=== PATIENT | male | born 1970 | race Caucasian/White ===

== ENCOUNTER 2017-04-23 01:32 | Emergency (ER) | payer SELFPAY ==
[~2017-04-23] VITALS: Ht 175.3 cm; Wt 59.5 kg
[2017-04-23 02:04] LABS: HEMATOCRIT 40.8 % (39.2-51.8); HEMOGLOBIN 13.8 g/dL (13.7-18.0); WHITE BLOOD COUNT 9.7 x10^3/uL (3.4-10)
[2017-04-23 02:54] LABS: ASPARTATE AMINO TRANSFERASE 23 U/L (15-37); BLOOD UREA NITROGEN 15 mg/dL (7-18)
[2017-04-23 04:36] VITALS: BP 113/70
== END 2017-04-23 04:38 | disposition home or self-care (01) ==
LOC: ED 04:03
DX: R10.30 Lower abdominal pain, unspecified (principal); F15.10 Other stimulant abuse, uncomplicated; F17.210 Nicotine dependence, cigarettes, uncomplicated
CPT/HCPCS: 36415; 80053; 81001; 83690; 85025; 99284

== ENCOUNTER 2017-05-07 15:26 | Emergency (ER) | payer MEDICAID ==
[~2017-05-07] VITALS: Ht 175.3 cm; Wt 61.4 kg
[2017-05-07 15:28] VITALS: BP 138/88
[2017-05-07] MEDS ORDERED: HYDROcodone/APAP 5/325 TABLET ONE (15:54)
[2017-05-07] MEDS ORDERED: CEFAZOLIN 1,000 MG ONE (15:55)
[2017-05-07] MEDS ORDERED: CEFAZOLIN 1,000 MG IM ONE (16:00)
[2017-05-07] MEDS ORDERED: HYDROcodone/APAP 5/325 TABLET PO PRN (16:00)
== END 2017-05-07 17:07 | disposition home or self-care (01) ==
LOC: ED 16:50
DX: L03.114 Cellulitis of left upper limb (principal)
CPT/HCPCS: 73130; 96372; 99284; J0690

== ENCOUNTER 2019-07-15 12:24 | Emergency (ER) | payer SELFPAY ==
[~2019-07-15] VITALS: Ht 175.3 cm; Wt 74.2 kg
[2019-07-15] MEDS ORDERED: LIDOCAINE-MPF 1%, 5ML ONE (13:24)
--- NOTE | 2019-07-15 13:29 | NUR ---
PT PRESENTS TO ED WITH C/O ABCESS TO LEFT MOHAN X 6 DAYS. BP AND SPO2 MONITORS IN PLACE. REGINA PÉREZ AT BEDSIDE FOR I&D.
[2019-07-15] MEDS ORDERED: LIDOCAINE-MPF 1%, 5ML INFIL ONE (13:30)
[2019-07-15] MEDS ORDERED: CEFTRIAXONE 1,000 MG IM ONE (13:30)
[2019-07-15] MEDS ORDERED: CEFTRIAXONE 1,000 MG ONE (14:39)
--- NOTE | 2019-07-15 14:40 | NUR ---
REPORT GIVEN TO NUNU MICHAEL.
--- NOTE | 2019-07-15 14:52 | NUR ---
REPORT REC'D ASSUMED PATIENT CARE. PATIENT MEDICATED PER ORDER. PATIENT REPORTS BURNING AT INJECTION SITE. PLAN TO DISCHARGE HOME AFTER ENSURING NO MEDICATION REACTION.
[2019-07-15 15:14] VITALS: BP 113/53
--- NOTE | 2019-07-15 15:19 | NUR ---
pATIENT DISCHARGED HOME, DISCHARGE INSTRUCTIONS PROVIDED ALL QUESTIONS AND CONCERNS ADDRESSED. pATIENT DID NOT HAVE A REACTION TO THE INJECTION. rEPORTS A SLIGHT PAIN BUT NO REDNESS OR DIFFICULTY BREATHING NOTED. AMBULATORY WITH STEADY GAIT STABLE. ALL BELONGINGS WITH PATIENT
== END 2019-07-15 15:55 | disposition home or self-care (01) ==
LOC: ED 15:00
DX: L02.416 Cutaneous abscess of left lower limb (principal); F17.200 Nicotine dependence, unspecified, uncomplicated
CPT/HCPCS: 96372; 99283; J0696

== ENCOUNTER 2019-08-09 09:40 | Emergency (ER) | payer SELFPAY ==
--- NOTE | 2019-08-09 10:19 | NUR ---
no answer in lobby
--- NOTE | 2019-08-09 10:21 | NUR ---
NO ANSWER X 2
--- NOTE | 2019-08-09 10:37 | NUR ---
NO ANSWER IN LOBBY
== END 2019-08-09 10:39 | disposition left against medical advice (07) ==
LOC: ED 10:33
DX: Z53.21 Procedure and treatment not carried out due to patient leaving prior to being seen by health care provider (principal)